=== PATIENT | female | born 1985 | race Caucasian/White ===

== ENCOUNTER → 2017-02-14 | Outpatient (CLI) | payer BC ==
[~2017-02-14] MED LIST: PRENTAB26 PO
[2017-02-14 17:37] LABS: BASO % 0.2 %; BASO ABS # 0.02 K/uL (0-0.2); COMPLETE YES; EOS % 0.9 %; HEMATOCRIT 43.9 % (37-47); IG% 0.5 %; LYMPH % 20.3 %; LYMPH ABS # 1.67 K/uL (1.2-3.4); MEAN CELL VOLUME 87.3 fL (80-100); MEAN CORPUSCULAR HEMOGLOBIN 29.4 pg (25-34); MEAN CORPUSCULAR HGB CONC 33.7 g/dl (32-36); MEAN PLATELET VOLUME 11.2 fL (7.4-10.4); MONO % 6.2 %; NEUT % 71.9 %; PLATELET COUNT 268 K/uL (130-400); RED BLOOD COUNT 5.03 M/uL (4.2-5.4); WHITE BLOOD COUNT 8.23 K/uL (4.8-10.8)
[2017-02-14 18:34] LABS: URINE APPEARANCE CLEAR (CLEAR); URINE BILIRUBIN NEG (NEG); URINE COLOR YELLOW; URINE NITRITE NEG (NEG); URINE PH 6.5 (4.5-7.5); URINE SPECIFIC GRAVITY 1.018 (1.000-1.030); UROBILINOGEN NEG (NEG)
[2017-02-14 18:37] LABS: MANUAL MICROSCOPIC REQUIRED? NO; REVIEW REQ? NO
[2017-02-17 14:03] LABS: CHLAMYDIA TRACH RNA*** NOT DETECTED (NOT DETECTED); GC (NEIS GONORRHOEAE)RNA** NOT DETECTED (NOT DETECTED)
== END | disposition home or self-care (01) ==
LOC: C.LAB1850 16:24
PROVIDERS: ATTEND Obstetrics & Gynecology
DX: Z34.91 Encounter for supervision of normal pregnancy, unspecified, first trimester (principal)

== ENCOUNTER → 2017-04-11 | Outpatient (CLI) | payer BC ==
[2017-04-11 20:32] LABS: GTGD 50 Grams
== END | disposition home or self-care (01) ==
LOC: C.LAB1850 16:54
PROVIDERS: ATTEND Obstetrics & Gynecology
DX: Z34.92 Encounter for supervision of normal pregnancy, unspecified, second trimester (principal)

== ENCOUNTER → 2017-05-07 | Outpatient (CLI) | payer BC ==
[2017-05-07 14:11] LABS: URINE APPEARANCE CLEAR (CLEAR); URINE BILIRUBIN NEG (NEG); URINE COLOR YELLOW; URINE NITRITE NEG (NEG); URINE PH 7.5 (4.5-7.5); URINE SPECIFIC GRAVITY 1.008 (1.000-1.030); UROBILINOGEN NEG (NEG)
[2017-05-07 14:12] LABS: MANUAL MICROSCOPIC REQUIRED? NO; REVIEW REQ? NO
== END | disposition home or self-care (01) ==
LOC: C.LABSPEC 13:53
PROVIDERS: ATTEND Physician Assistant
DX: N89.8 Other specified noninflammatory disorders of vagina (principal); R39.9 Unspecified symptoms and signs involving the genitourinary system

== ENCOUNTER → 2017-06-25 | Outpatient (CLI) | payer BC ==
[2017-06-25 12:06] LABS: HEMATOCRIT 37.9 % (37-47); HEMOGLOBIN 12.8 g/dL (12.0-16.0)
== END | disposition home or self-care (01) ==
LOC: C.LABBC 09:21
PROVIDERS: ATTEND Obstetrics & Gynecology
DX: Z34.92 Encounter for supervision of normal pregnancy, unspecified, second trimester (principal)

== ENCOUNTER 2017-08-09 23:04 | Outpatient (CLI) | payer BC ==
[~2017-08-09] VITALS: Ht 175.3 cm; Wt 80.5 kg
[2017-08-09] MEDS ORDERED: FOLI1TAB8 PO (23:46)
[2017-08-09 23:47] VITALS: Ht 175.3 cm; Wt 80.5 kg
== END 2017-08-10 00:31 | disposition home or self-care (01) ==
LOC: C.OPB 23:04 → C.LD 23:04 → C.OPB 08-10 00:31
PROVIDERS: ATTEND Obstetrics & Gynecology
DX: O62.9 Abnormality of forces of labor, unspecified (principal); Z3A.34 34 weeks gestation of pregnancy

== ENCOUNTER → 2017-08-27 | Outpatient (CLI) | payer BC ==
[~2017-08-27] MED LIST changes: +FOLI1TAB8 PO
== END | disposition home or self-care (01) ==
LOC: C.LABSPEC 10:43
PROVIDERS: ATTEND Obstetrics & Gynecology
DX: Z34.93 Encounter for supervision of normal pregnancy, unspecified, third trimester (principal)

== ENCOUNTER 2017-09-23 01:54 | Inpatient (IN) | payer BC ==
[~2017-09-23] VITALS: Ht 175.3 cm; Wt 82.0 kg
[2017-09-23] MEDS ORDERED: LACTATED RINGER'S 1000ML 1,000 ML IV SCH (02:08)
[2017-09-23] MEDS ORDERED: LACTATED RINGER'S 1000ML 1,000 ML IV PRN (02:08)
[2017-09-23 02:11] VITALS: Ht 175.3 cm; Wt 82.0 kg
[2017-09-23] MEDS ORDERED: EpHEDrine SULFATE INJ 50 MG/ML AMP ONE (02:21)
[2017-09-23] MEDS ORDERED: FENTANYL CITRATE INJ 50 MCG/1 ML 2 ML VIAL ONE (02:21)
[2017-09-23] MEDS ORDERED: BUPIVACAINE 0.25% 30 ML VIAL ONE (02:21)
[2017-09-23] MEDS ORDERED: FENTANYL 2MCG/ML ROPIV 1.25MG/ML 100ML BAG EPI ONE (02:22)
[2017-09-23 02:34] LABS: HEMATOCRIT 40.7 % (37-47); MEAN CELL VOLUME 88.5 fL (80-100); MEAN CORPUSCULAR HEMOGLOBIN 30.4 pg (25-34); MEAN CORPUSCULAR HGB CONC 34.4 g/dl (32-36); MEAN PLATELET VOLUME 10.7 fL (7.4-10.4); PLATELET COUNT 130 K/uL (130-400); RED CELL DISTRIBUTION WIDTH CV 14.5 % (11.5-14.5); WHITE BLOOD COUNT 9.08 K/uL (4.8-10.8)
[2017-09-23] MEDS ORDERED: EpHEDrine SULFATE INJ 50 MG/ML AMP IV PRN (03:45)
[2017-09-23] MEDS ORDERED: LACTATED RINGER'S 1000ML 500 ML IV PRN ×2 (03:45→04:57)
[2017-09-23] MEDS ORDERED: DiphenhydrAMINE HCL 50 MG/ML VIAL IV PRN (03:45)
[2017-09-23] MEDS ORDERED: NALOXONE HCL INJ 0.4 MG/1 ML VIAL/CARP IV PRN (03:45)
[2017-09-23] MEDS ORDERED: NALOXONE HCL INJ 1 MG in SODIUM CHLORIDE 0.9% 1000ML 1,000 ML IV PRN (03:45)
[2017-09-23] MEDS ORDERED: NALBUPHINE HCL INJ 10 MG/ML AMP IV PRN (03:45)
[2017-09-23] MEDS ORDERED: ONDANSETRON INJ 2 MG/ML 2 ML VIAL IV PRN (03:45)
[2017-09-23] MEDS ORDERED: FENTANYL 2MCG/ML ROPIV 1.25MG/ML 100ML BAG EPI PRN (03:45)
[2017-09-23] MEDS ORDERED: OXYTOCIN 30 UNITS/500ML NSS IV PRN ×2 (05:00→09:30)
[2017-09-23] MEDS ORDERED: SUPERCREAM 0.870 % 15GM JAR EXT PRN (09:30)
[2017-09-23] MEDS ORDERED: LANOLIN OINT EXT PRN (09:30)
[2017-09-23] MEDS ORDERED: BENZOCAINE 20% AER SPR 82.5 GM CAN EXT PRN (09:30)
[2017-09-23] MEDS ORDERED: OXYCODONE/ACETAMINOPHEN 5-325 TAB PO PRN (09:30)
[2017-09-23] MEDS ORDERED: HYDROCORTISONE ACETATE 25 MG SUPP PR PRN (09:30)
--- NOTE | 2017-09-23 11:36 | DELIVERY SUMMARY ---
DATE OF OPERATION: 09/23/2017 DATE OF DELIVERY: 09/23/2017 PREDELIVERY DIAGNOSES: 1. 32-year-old -0-0-3 at 40 weeks 2 days. 2. Uncomplicated in spontaneous labor. POSTDELIVERY DIAGNOSES: Same. PROCEDURE: Vaginal delivery. FINDINGS: Viable male with Apgars 8 and 9. Weight pending. Please see nursery records. ESTIMATED BLOOD LOSS: 300 mL. COMPLICATIONS: None. DISPOSITION: Stable and good. Recovering in room. DESCRIPTION OF DELIVERY: The patient progressed to complete with epidural anesthesia and then began to push. She spontaneously vaginally delivered a viable male from the cephalic presentation with the head in right occiput anterior position. The head delivered followed by the anterior and posterior shoulders at the same time with a nuchal cord around the arms x1. The arms delivered at the same time as the shoulders. The baby was placed on mother's abdomen. The cord was doubly clamped and cut. As the baby was being moved from mother's abdomen to the pediatrics' table a spontaneous cry was heard. A cord segment was retained. Cord blood was obtained. The placenta was delivered spontaneously intact with a 3-vessel cord. Pitocin was given. The uterus became firm. The uterus and vagina were swept of all clots and debris. The bladder was emptied for a large amount of urine. Excellent hemostasis was noted. The cervix, vagina and perineum were inspected and no lacerations were noted. Excellent hemostasis was observed. Sponge, instrument and needle counts were correct at the conclusion of the delivery x2. The mother and baby recovered in stable and good condition in the room. I attest to the content of the Intraoperative Record and any orders documented therein. Any exception s are noted below.
--- NOTE | 2017-09-23 11:38 | Anesthesia Procedure Note ---
Anesthesia Epidural Removal Nt Date & Time Sep 23, 2017 at 11:38 Vital Signs Pain Intensity: 0.0 Notes Mental Status: alert / awake / arousable, participated in evaluation Nausea / Vomiting: adequately controlled Pain: adequately controlled Airway Patency, RR, SpO2: stable & adequate BP & HR: stable & adequate Hydration State: stable & adequate Neuraxial Anesthesia: was administered Anesthetic Complications: no major complications apparent, pt satisfied with anesthetic care Epidural: removed without complications, with tip intact
[2017-09-23 13:00] VITALS: BP 103/64; PULSE 102; TEMP 36.9; O2SAT 98
[2017-09-23 16:05] VITALS: BP 99/66; PULSE 88; TEMP 36.9; O2SAT 98
[2017-09-23] MEDS: IBUPROFEN 600 MG TAB PO PRN ×2 (16:44→23:23)
--- NOTE | 2017-09-23 18:15 | Progress Note ---
Progress Note Date of Service Sep 23, 2017. Progress Note Patient complaining of 'confetti'-like spots in vision. No other symptoms - no headache, no nausea/vomiting, no RUQ pain. Vitals wnl. Abd soft, gravid. Ext: tr edema Will obtain preeclampsia labs in the event this is an atypical presentation of preeclampsia. If these symptoms worsen, patient is to notify RN, we will consider consulting neurology if no improvement.
[2017-09-23] MEDS: ACETAMINOPHEN 325 MG TAB PO PRN (18:17)
[2017-09-23 19:13] LABS: HEMATOCRIT 41.6 % (37-47); HEMOGLOBIN 14.2 g/dL (12.0-16.0); MEAN CELL VOLUME 89.7 fL (80-100); MEAN CORPUSCULAR HEMOGLOBIN 30.6 pg (25-34); MEAN CORPUSCULAR HGB CONC 34.1 g/dl (32-36); PLATELET COUNT 151 K/uL (130-400); RED CELL DISTRIBUTION WIDTH CV 14.5 % (11.5-14.5); RED CELL DISTRIBUTION WIDTH SD 47.7 fL (36.4-46.3); WHITE BLOOD COUNT 12.02 K/uL (4.8-10.8)
[2017-09-23 19:17] VITALS: BP 103/71; PULSE 81; TEMP 36.6
[2017-09-23 19:37] LABS: ALBUMIN 2.4 gm/dl (3.4-5.0); CALCIUM 8.8 mg/dl (8.5-10.1); CREATININE 0.56 mg/dl (0.60-1.20); POTASSIUM 3.7 mmol/L (3.5-5.1); URIC ACID 4.6 mg/dl (2.6-7.2)
[2017-09-23 19:40] LABS: TOTAL PROTEIN 6.1 gm/dl (6.4-8.2)
[2017-09-23] MEDS: DOCUSATE SODIUM 100 MG CAP PO SCH (20:10)
[2017-09-23 23:25] VITALS: BP 115/82; PULSE 76; TEMP 36.7
[2017-09-24] MEDS: ACETAMINOPHEN 325 MG TAB PO PRN ×3 (03:09→16:51)
[2017-09-24] MEDS: IBUPROFEN 600 MG TAB PO PRN ×3 (05:31→15:13)
--- NOTE | 2017-09-24 06:47 | Progress Note ---
Subjective Sep 24, 2017. Subjective conversation w/ patient, physical exam, chart review, lab review Ambulation: ambulating normally Voiding: no voiding problems Passing Gas: Yes Diet Tolerance: Regular Diet Lochia: Small Feeding Type: Breast Feeding Review of Systems Constitutional: No fever, No chills Respiratory: No cough, No shortness of breath Cardiac: No chest pain, No palpitations Abdomen: No pain, No nausea, No vomiting Female : No dysuria Objective Vital Signs Date Time Temp Pulse Resp B/P (MAP) Pulse Ox O2 Delivery O2 Flow Rate FiO2 09/23/17 23:25 36.7 76 16 115/82 (93) Room Air 09/23/17 23:25 Room Air 09/23/17 19:17 36.6 81 18 103/71 (82) Room Air 09/23/17 16:05 36.9 88 18 99/66 09/23/17 16:05 98 Room Air 09/23/17 13:00 98 Room Air 09/23/17 13:00 36.9 102 18 103/64 (77) 98 Room Air Physical Exam General Appearance: WELL-APPEARING, WD/WN, NO APPARENT DISTRESS Respiratory/Chest: lungs clear, no respiratory distress Cardiovascular: regular rate, rhythm, no murmur Abdomen: non tender, soft Fundus: Firm, Relation to Umbilicus (1 below u) Extremities: non-tender, normal inspection Laboratory Results Last 24 Hours Test 09/23/17 18:51 09/24/17 06:26 White Blood Count 12.02 K/uL Red Blood Count 4.64 M/uL Hemoglobin 14.2 g/dL Hematocrit 41.6 % Mean Corpuscular Volume 89.7 fL Mean Corpuscular Hemoglobin 30.6 pg Mean Corpuscular Hemoglobin Concent 34.1 g/dl RDW Standard Deviation 47.7 fL RDW Coefficient of Variation 14.5 % Platelet Count 151 K/uL Mean Platelet Volume 11.0 fL Sodium Level 138 mmol/L Potassium Level 3.7 mmol/L Chloride Level 108 mmol/L Carbon Dioxide Level 25 mmol/L Anion Gap 5.0 mmol/L Blood Urea Nitrogen 6 mg/dl Creatinine 0.56 mg/dl Est Creatinine Clear Calc Drug Dose 166.7 ml/min Estimated GFR () 144.0 Estimated GFR (Non- 124.2 BUN/Creatinine Ratio 10.0 Random Glucose 110 mg/dl Uric Acid 4.6 mg/dl Calcium Level 8.8 mg/dl Total Bilirubin 0.7 mg/dl Aspartate Amino Transf (AST/SGOT) 17 U/L Alanine Aminotransferase (ALT/SGPT) 18 U/L Alkaline Phosphatase 114 U/L Total Protein 6.1 gm/dl Albumin 2.4 gm/dl Globulin 3.7 gm/dl Albumin/Globulin Ratio 0.6 Assessment and Plan Post- Day#: 1 Continue Routine Care: 32, F, , A+/RI/GBS-, PPD1. Vital reviewed, WNL. Hgb 14 on admission, 14.2 this am. No signs or sx of anemia. Doing well clinically. Plan; 1. Recovery from vaginal delivery; ambulate, support BF, monitor lochia, control pain 2 Discussed dc planning--patient delivered on 09/23 in the am. Resident Physician Supervision Note: I was present with Dr. Gan during the history and exam. I discussed the case with the resident and agree with the findings and plan as documented in the note. Any exceptions or clarifications are listed here: PPD#1 doing well. Vision spots have resolved. PreE labs were wnl. Considering going home later today. Documented By: Magi Zaman
--- NOTE | 2017-09-24 06:48 | Discharge Instructions ---
Discharge Instructions Date of Service Sep 24, 2017. Admission Reason for Admission: Normal Labor And Delivery Discharge Discharge Diagnosis / Problem: vaginal delivery Discharge Goals Goal(s): Routine recovery after delivery Medications Continue Dispensed Medications: supercream, dermaplast, lansinoh Activity Recommendations Activity Limitations: per Instructions/Follow-up section . Instructions / Follow-Up Instructions / Follow-Up ACTIVITY RECOMMENDATIONS: * Gradual return to full activity over the next 2-3 weeks. * No lifting - nothing heavier than baby over the next 2-3 weeks. * Do not engage in vigorous exercise, sexual activity or sports until cleared by your physician. * Do not drive or operate any motorized equipment until cleared by your physician. * You may shower/bathe daily. MEDICATIONS: For discomfort or pain, you may use Acetaminophen (Tylenol), Ibuprofen (Advil), or Naproxen (Aleve) following the package directions. For constipation you may use Colace following the package directions. BREAST CARE: If you are not breast feeding: * Wear a supportive bra 24 hours a day for one to two weeks. * Avoid stimulating your breasts and nipples as much as possible during the first few weeks after delivery. * When taking a shower, have the warm water hit your back, not breasts. * When your breasts feel full, apply ice packs. Usually three to four times a day helps ease the discomfort. * Take a mild pain medication (Tylenol / Motrin) when you are uncomfortable. If breast feeding: * Use breast milk to lubricate nipples. Lansinoh cream may be used for sore nipples. You do not need to remove cream prior to breast feeding. If using a different brand of cream, check the label for directions regarding removal of cream prior to nursing. * Wear a supportive bra. * If having problems with breasts or breast feeding, call a community resource consultant or your health care provider. EPISIOTOMY CARE: After delivery, if you have an episiotomy (stitches), the following steps will ease discomfort and aid healing. * For the first 24 hours after delivery, place ice packs next to your episiotomy to help reduce swelling. * After the first 24 hour-period, sitz baths, either portable or in the tub, are suggested. A shower with a shower arm sprayed over the episiotomy may be comforting. * Thao care should be done after each voiding and bowel movement. Squirt warm water from a plastic bottle over the perineum (region of the body between the anus and urinary opening) and pat dry. * Use Dermoplast to ease discomfort. Shake container. Mason directly over the episiotomy. Place a Tucks on a clean sanitary pad next to your episiotomy. SPECIAL CARE INSTRUCTIONS: When you are discharged from the hospital, it is important for you to follow the instructions listed below: * During the first week at home, you should be able to care for yourself and your baby. In addition, the usual light household activities are encouraged. * Limit your activities to the way you feel. Do not try to clean the house or move furniture. Be sensible. * If you actively engage in sports and have done so up until the time of your delivery, you may resume these activities as soon as you feel able. This may take up to one month or even longer. Use good judgment. * Continue to take your vitamins for at least six weeks after the of your baby. * Your diet need not be limited unless you were on a special diet before your delivery. Breast-feeding mothers need around 2500 calories per day and at least 64-80 ounces of fluid per day (8 to 10 glasses). * You should eat foods from the four major food groups. Crash diets or fad diets are to be avoided. Eating lean meats, fresh fruits and vegetables, low-fat dairy products, high fiber foods and a regular exercise program, will help you get back to your pre- weight without putting your health at risk. * Constipation is sometimes a problem after delivery. Take a mild laxative as needed. If breast feeding, Milk of Magnesia is acceptable to use. You may use a suppository or Fleets enema if no episiotomy. * A daily shower or tub bath is suggested. Be sure to thoroughly and gently dry the perineum. * A bloody vaginal discharge will usually continue until around four weeks post . A small amount of bleeding may continue for as long as six weeks. Vaginal discharge changes from the bright red bleeding after delivery to pink then brownish and finally yellowish-pink before becoming white and disappearing. * Bleeding may increase with activity. Your first period may come in 4-8 weeks. If you are breast feeding, your period may be delayed even longer. * [place] (sex) can begin whenever both you and your partner feel comfortable and do not have any form of genital infection. It is recommended that you wait at least six weeks for internal and external healing to occur. If you have questions, please talk to your health care practitioner. A condom should be used to prevent infection and . * Foreplay, gentle intercourse and lubrication is very important the first several times to prevent pain. A water-based lubricant such as K-Y jelly or Astroglide may be used. * If you have RH negative blood and your baby is RH positive, you will receive RHOGAM by injection prior to discharge. The nurse will give you a card to keep with you that has the date and place that you received RHOGAM after delivery. * During your care, you had a Rubella screen done to check for the presence of rubella antibodies in your blood. If your test was negative, you will receive a Rubella vaccine prior to discharge. This vaccine may cause a fever, soreness at the injection site and flu-like symptoms. If these symptoms persist, notify your health care practitioner. is not advised for one month after a Rubella vaccine. * Verbalizes understanding of car seat law as reviewed with patient nursing. * Car Seat hand-out given and reviewed with patient by nursing. * Shaken baby information reviewed with patient by nursing. Call you doctor if: * Heavy bleeding (saturating several pads an hour) or passing clots the size of your fist. * A fever >101 degrees F (38.3 degrees C) on two occasions four hours apart and /or chills. * Unusual pain in the pelvic or vaginal areas. * "Baby Blues" lasting longer than two weeks. If you have any questions or concerns, call your health care practitioner at . FOLLOW UP VISIT: * Please call the office at to schedule a 6 week examination. It is important you keep this appointment. It is important for you to make arrangements for either yearly or twice yearly check-ups thereafter. Current Hospital Diet Patient's current hospital diet: Regular OB Diet Discharge Diet Recommended Diet: Regular Diet, Regular OB Diet Pending Studies Studies pending at discharge: no Medical Emergencies . Who to Call and When: Medical Emergencies: If at any time you feel your situation is an emergency, please call 911 immediately. . Non-Emergent Contact Non-Emergency issues call your: Primary Care Provider, Chiropractic Practice Manager . . "Provider Documentation" section prepared by Bijan Gan. .
[2017-09-24 07:36] LABS: HEMATOCRIT 37.9 % (37-47); HEMOGLOBIN 12.8 g/dL (12.0-16.0)
[2017-09-24 07:50] VITALS: BP 100/62; PULSE 93; TEMP 36.6; O2SAT 98
[2017-09-24] MEDS ORDERED: PRENATAL VITAMIN TAB PO SCH (08:00)
[2017-09-24] MEDS: DOCUSATE SODIUM 100 MG CAP PO SCH (08:21)
[2017-09-24 16:30] VITALS: BP 107/67; PULSE 74; TEMP 36.6; O2SAT 98
[2017-09-24 18:37] VITALS: BP_DIAS 67; PULSE 74; TEMP 36.6
[2017-09-24] MEDS ORDERED: BISACODYL 5 MG TABEC PO SCH (20:00)
== END 2017-09-24 18:37 | disposition home or self-care (01) | DRG 775 ==
LOC: C.OPB 01:54 → C.LD 01:54 → C.OPB 02:10 → C.LD 02:10 → C.OBG 13:06
PROVIDERS: ADMIT Obstetrics & Gynecology; ATTEND Obstetrics & Gynecology
PROC: 10E0XZZ Delivery of Products of Conception, External Approach (ICD-10-PCS; principal; 2017-09-23)
DX: O48.0 Post-term pregnancy (principal); O69.1XX0 Labor and delivery complicated by cord around neck, with compression, not applicable or unspecified; Z37.0 Single live birth; Z3A.40 40 weeks gestation of pregnancy